=== PATIENT | female | born 2000 | race Caucasian/White ===

== ENCOUNTER 2025-05-04 16:35 | Emergency (ER) | payer SELFPAY ==
[2025-05-04 16:40] VITALS: BP 149/93
--- NOTE | 2025-05-04 18:06 | ED.GENMED ---
History of Present Illness
General
Chief Complaint: Crisis Evaluation
Time Seen by Provider: 05/04/25 16:52
History of Present Illness
History of Present Illness:
Patient is a 24-year-old woman with history of bipolar disorder presenting to the emergency department for crisis evaluation. Patient states that she felt like she went into a manic episode and started spiraling. Earlier today she had a brief
thought of wanting to kill herself by overdosing on her medication. She then called her mom as she got upset by these thoughts. She states that she is too much of a coward to do anything about her suicidal thoughts. She then came here for further
evaluation. She does feel as if she needs stronger medications. She does have a psychiatrist and a therapist. She denies any SI or HI currently. No medical complaints.
Phy Exam
Physical Exam
Physical Exam:
GENERAL: in no acute distress
HEENT: normocephalic, extraocular movements intact
NECK: normal inspection
RESPIRATORY: no respiratory distress
CARDIOVASCULAR: regular rate and rhythm
EXTREMITIES: non-tender, no edema/swelling
NEUROLOGIC: awake and alert, moves all extremities
SKIN: warm
Course
Orders/Labs/Results
Orders:
Orders
05/04/25 16:36
Crisis Consult Urgent
Reason for Consult: SI
05/04/25 17:00
Urine Drug Abuse Screen Urgent
Date Specimen was Collected: 05/04/25
Time Specimen was Collected: 16:56
Vital Signs
Initial and Last Documented VS:
Initial Vital Signs
Temp Pulse Resp BP Pulse Ox
98.6 F 86 16 149/93 98
05/04/25 16:40 05/04/25 16:40 05/04/25 16:40 05/04/25 16:40 05/04/25 16:40
Last Documented Vital Signs
Temp Pulse Resp BP Pulse Ox
98.6 F 86 16 149/93 98
05/04/25 16:40 05/04/25 16:40 05/04/25 16:40 05/04/25 16:40 05/04/25 16:40
MDM/Problems Addressed
Differential Diagnosis Includes:
Patient is a 24-year-old woman presenting to the emergency department for crisis evaluation after having a brief suicidal thoughts earlier today. Vitals are notable for hypertension exam is otherwise reassuring. Patient is medically clear for
crisis evaluation.
Crisis evaluated patient. She will be going to intensive outpatient program. Patient continues to deny any SI. She does have multiple supportive factors including her family and her insight. Will discharge at this time.
*Pulse Oximetry
SaO2: 98
Oxygen Mode of Delivery: Room air
Patient hypoxic: no (98)
*Critical Care Note
Total Time (30-74mins, 75-104mins- exclusive of procedures): Not Applicable
ED Attending Note
-
Portions of this chart may have been created with voice recognition software.� Occasional wrong word or��sound alike� substitutions may have occurred due to the inherent limitations of voice recognition software.
Discharge Plan
Departure
Patient Disposition: Home (Routine Discharge)
Date of Disposition: 05/04/25
Time of Disposition: 18:05
Patient with high blood pressure during this ER visit?: No
Discharge Problem:
Passive suicidal ideations
Instructions: Suicide prevention
Prescriptions:
No Action
No Current Medications
clindamycin HCl 300 MG capsule
300 mg PO TID Qty: 21 0RF
Interventions
Interventions:
*Risk Screen - Suicide Last Done: 05/04/25 16:40
*General Assessment Last Done: 05/04/25 16:40
*Neglect/Abuse Screening Last Done: 05/04/25 16:40
*ED COVID-19 Vaccine History Last Done: 05/04/25 16:40
ED-Psychological Assessment Last Done: 05/04/25 16:56
Discharge Date and Time
Print Language: [id number]
== END 2025-05-04 18:23 | disposition home or self-care (01) ==
LOC: EMR 16:35
PROVIDERS: EMERGENCY PHYSICIAN Student in an Organized Health Care Education/Training Program
DX: R45.851 Suicidal ideations (principal); F31.9 Bipolar disorder, unspecified
CPT/HCPCS: 99283; 80306